=== PATIENT | male | born 1985 | race Caucasian/White ===

== ENCOUNTER 2017-12-16 18:18 | Emergency (ER) | payer BC ==
[2017-12-16 18:30] VITALS: BP 142/101
[2017-12-16] MEDS ORDERED: Ondansetron ODT TAB* 4 MG PO ONE (18:45)
--- NOTE | 2017-12-16 18:48 | UC ---
Abdominal Pain Male HPI - HPI Summary HPI Summary: Nausea vomiting and diarrhea began earlier this week, feeling better today and diarrhea has responded well to immodium. no fevers, voiding qs---feels some of the nausea may be lingering-- - History of Current Complaint Chief Complaint: UCGI Stated Complaint: NAUSEA, AND DIARRHEA Time Seen by Provider: 12/16/17 18:28 Hx Obtained From: Patient Onset/Duration: Sudden Onset, Other - mostly resolved was able to eat a sandwich wrap today Pain Intensity: 0 Pain Scale Used: 0-10 Numeric Location: Diffuse Radiates: No Character: Cramping Aggravating Factor(s): Food Alleviating Factor(s): Nothing Associated Signs And Symptoms: Positive: Decreased Appetite, Nausea, Vomiting, Diarrhea - Allergies/Home Medications Allergies/Adverse Reactions: Allergies Allergy/AdvReac Type Severity Reaction Status Date / Time No Known Allergies Allergy Verified 12/16/17 18:24 Home Medications: Home Medications Immodium 1 tab PO Q8HR PRN 12/16/17 [History] PMH/Surg Hx/FS Hx/Imm Hx Previously Healthy: Yes - Surgical History Surgical History: Yes Surgery Procedure, Year, and Place: RT ANKLE. LT SHOULDER - Family History Known Family History: Positive: None - Social History Occupation: Employed Full-time Lives: With Family Alcohol Use: Occasionally Substance Use Type: None Smoking Status (MU): Never Smoked Tobacco Review of Systems Constitutional: Negative Skin: Negative Eyes: Negative ENT: Negative Respiratory: Negative Cardiovascular: Negative Gastrointestinal: Abdominal Pain, Vomiting, Diarrhea, Nausea Genitourinary: Negative Motor: Negative Neurovascular: Negative Musculoskeletal: Negative Neurological: Negative Psychological: Negative Is Patient Immunocompromised?: No All Other Systems Reviewed And Are Negative: Yes Physical Exam Triage Information Reviewed: Yes Appearance: Well-Appearing, No Pain Distress, Well-Nourished Vital Signs: Initial Vital Signs Temp 97.3 F 12/16/17 18:27 Pulse 85 12/16/17 18:27 Resp 18 12/16/17 18:27 BP 142/101 12/16/17 18:27 Pulse Ox 98 12/16/17 18:27 Vital Signs Reviewed: Yes Eye Exam: Normal Eyes: Positive: Conjunctiva Clear ENT Exam: Normal ENT: Positive: Normal ENT inspection. Negative: Trismus, Muffled voice, Hoarse voice Dental Exam: Normal Neck exam: Normal Neck: Positive: Supple, Nontender, No Lymphadenopathy Respiratory Exam: Normal Respiratory: Positive: Chest non-tender, Lungs clear, Normal breath sounds, No respiratory distress, No accessory muscle use Cardiovascular Exam: Normal Cardiovascular: Positive: RRR, No Murmur, Pulses Normal, Brisk Capillary Refill Abdominal Exam: Normal Abdomen Description: Positive: Nontender, No Organomegaly, Soft. Negative: CVA Tenderness (R), CVA Tenderness (L) Bowel Sounds: Positive: Present Musculoskeletal Exam: Normal Musculoskeletal: Positive: Strength Intact, ROM Intact, No Edema Neurological Exam: Normal Neurological: Positive: Alert, Muscle Tone Normal Psychological Exam: Normal Skin Exam: Normal Abd Pain Male Course/Dx - Course Course Of Treatment: Zofran with excellent relief of remaining nausea---will d/ c to home with rx for zofran and nutritional tips to manage gi symptoms follow with pcp prn - Differential Dx/Clinical Impression Provider Diagnoses: Acute nausea/vomitin/diarrhea Discharge - Sign-Out/Discharge Documenting (check all that apply): Patient Departure All imaging exams completed and their final reports reviewed: No Studies - Discharge Plan Condition: Stable Disposition: HOME Prescriptions: Ondansetron ODT TAB* [Zofran 4 MG Odt TAB*] 4 mg PO Q6H PRN #8 tab.odt PRN Reason: nausea/vomiting Patient Education Materials: Acute Nausea and Vomiting (ED), Acute Diarrhea (ED ), Hypertension (ED), Nutrition Tips for Relief of Diarrhea (ED) Referrals: Yo Villagomez MD [Primary Care Provider] - 1 Week - Billing Disposition and Condition Condition: STABLE Disposition: Home
== END 2017-12-16 19:15 | disposition home or self-care (01) ==
LOC: UCEAST 18:18
DX: R11.2 Nausea with vomiting, unspecified (principal); R19.7 Diarrhea, unspecified
CPT/HCPCS: 81003; 99202; A9270-GY; G0463

== ENCOUNTER 2018-03-20 13:42 | Emergency (ER) | payer BC ==
[2018-03-20 14:04] VITALS: BP 131/87
--- NOTE | 2018-03-20 14:21 | UC ---
Throat Pain/Nasal Earl HPI - HPI Summary HPI Summary: 33 y/o male presents to the urgent care c/o sore throat that started Wednesday evening 03/18/2018. Pt states he has lost his voice at the same time with swollen glands. He also has nasal congestion w/ clear nasal discharge and mild SANTILLAN. Pt denies fever, chills, body aches, SOB, chest pain, abdominal pain, N/V/ D. - History of Current Complaint Chief Complaint: UCRespiratory Stated Complaint: SORE THROAT Time Seen by Provider: 03/20/18 14:19 Hx Obtained From: Patient Onset/Duration: Gradual Onset, Lasting Days - 2 days, Worse Since - today Severity: Mild Pain Intensity: 2 Pain Scale Used: 0-10 Numeric Cough: Nonproductive - mild Associated Signs & Symptoms: Positive: Dysphagia - mild, Hoarseness, Sinus Discomfort, Nasal Discharge - clear. Negative: Fever - Epiglottits Risk Factors Epiglottis Risk Factors: Negative - Allergies/Home Medications Allergies/Adverse Reactions: Allergies Allergy/AdvReac Type Severity Reaction Status Date / Time No Known Allergies Allergy Verified 03/20/18 14:04 PMH/Surg Hx/FS Hx/Imm Hx Previously Healthy: Yes Respiratory History: Asthma - controlled - Surgical History Surgical History: Yes Surgery Procedure, Year, and Place: RT ANKLE. LT SHOULDER - Family History Known Family History: Positive: Diabetes - Social History Occupation: Employed Full-time Lives: With Family Alcohol Use: Weekly Substance Use Type: None Smoking Status (MU): Never Smoked Tobacco Review of Systems All Other Systems Reviewed And Are Negative: Yes Constitutional: Positive: Negative Skin: Positive: Negative Eyes: Positive: Negative ENT: Positive: Sore Throat, Nasal Discharge - clear, Sinus Congestion, Other - hoarseness Respiratory: Positive: Cough - dry Cardiovascular: Positive: Negative Gastrointestinal: Positive: Negative Genitourinary: Positive: Negative Motor: Positive: Negative Neurovascular: Positive: Negative Musculoskeletal: Positive: Negative Neurological: Positive: Headache - mild Psychological: Positive: Negative Is Patient Immunocompromised?: No Physical Exam - Summary Physical Exam Summary: VITAL SIGNS: Reviewed. GENERAL: Patient is a well developed and nourished male who is sitting comfortable in the examining table. Patient is not in any acute respiratory distress. HEAD AND FACE: No signs of trauma. No ecchymosis, hematomas or skull depressions. No sinus tenderness. EYES: PERRLA, EOMI x 2, No injected conjunctiva, no nystagmus. No photophobia. EARS: Hearing grossly intact. Ear canals and tympanic membranes are within normal limits. Nose: edematous and erythematous nasal mucosa w/ clear nasal discharge. MOUTH: Positive no erythema, no tonsillar enlargement. Uvula in midline. NECK: Supple, trachea is midline, Positive anterior cervical lymphadenopathy, no JVD, no carotid bruit, no c-spine tenderness, neck with full ROM. No meningeal signs, no Kernig's or brudzinskis signs. CHEST: Symmetric, no tenderness at palpation LUNGS: Clear to auscultation bilaterally. No wheezing or crackles. CVS: Regular rate and rhythm, S1 and S2 present, no murmurs or gallops appreciated. ABDOMEN: Soft, non-tender. No signs of distention. No rebound no guarding, and no masses palpated. Bowel sounds are normal. EXTREMITIES: FROM in all major joints, no edema, no cyanosis or clubbing. NEURO: Alert and oriented x 3. No acute neurological deficits. Speech is normal and follows commands. SKIN: Dry and warm Triage Information Reviewed: Yes Vital Signs: Initial Vital Signs Temp 97.6 F 03/20/18 14:01 Pulse 81 03/20/18 14:01 Resp 18 03/20/18 14:01 BP 131/87 03/20/18 14:01 Pulse Ox 97 03/20/18 14:01 Throat Pain/Nasal Course/Dx - Course Course Of Treatment: 33 y/o male presents to the urgent care c/o sore throat that started Wednesday evening 03/18/2018. Pt states he has lost his voice at the same time with swollen glands. He also has nasal congestion w/ clear nasal discharge and mild SANTILLAN. Pt denies fever, chills, body aches, SOB, chest pain, abdominal pain, N/V/D. Hx opbtained. Pt w/ URI on examination. Rapid strep= negative. Pt advised to increase fluid intake, rest and eat well, Rx Ibuprofen , Tessalon PO to alleviate symptoms. Pt understood and agreed with D/C instructions. - Differential Dx/Diagnosis Differential Diagnosis/HQI/PQRI: Influenza, Laryngitis, Pharyngitis, Tonsillitis , URI Provider Diagnosis: Upper respiratory infection Discharge - Sign-Out/Discharge Documenting (check all that apply): Patient Departure - d/c home All imaging exams completed and their final reports reviewed: No Studies - Discharge Plan Condition: Stable Disposition: HOME Prescriptions: Ibuprofen TAB* [Motrin TAB* 600 MG] 600 mg PO Q6H PRN #30 tab PRN Reason: Sore Throat Patient Education Materials: Upper Respiratory Infection (ED) Referrals: Yo Villagomez MD [Primary Care Provider] - 3 Days Additional Instructions: 1-Please take ibuprofen PO q6-8hrs prn as instructed after meals to alleviate pain and swelling. Increase fluid intake, eat well, rest and avoid strenuous exercise. 2- Please rest your voice to alleviate symptoms 3-If symptoms do not improve or worsen please return to the urgent care or f/u with your PCP in 3 days for further evaluation and treatment. - Billing Disposition and Condition Condition: STABLE Disposition: Home
== END 2018-03-20 15:02 | disposition home or self-care (01) ==
LOC: UCEAST 13:42
DX: J02.9 Acute pharyngitis, unspecified (principal)
CPT/HCPCS: 87651; 99212; G0463